=== PATIENT | female | born 1955 | race Caucasian/White ===

== ENCOUNTER 2019-05-07 14:21 | Emergency (ER) | payer MEDICAID ==
[~2019-05-07] VITALS: Ht 167.6 cm; Wt 82.0 kg
[~2019-05-07 14:21] MED LIST: HYDR25TA6 PO; LOSA50TA14 PO
[2019-05-07 14:46] VITALS: BP 151/76; PULSE 88; RESP 19; Ht 167.6 cm; Wt 82.0 kg
== END 2019-05-07 15:17 | disposition home or self-care (01) ==
LOC: E/R 14:21
DX: I10 Essential (primary) hypertension (principal); Z76.0 Encounter for issue of repeat prescription
CPT/HCPCS: 99281